=== PATIENT | female | born 1960 | race Caucasian/White ===

== ENCOUNTER 2021-01-28 05:41 | Emergency (ER) | payer MEDICARE ==
[2021-01-28 06:56] LABS: HEMOGLOBIN 14.8 gm/dl (12.3-15.3); RED BLOOD COUNT 4.87 M/UL (4.00-5.10); WHITE BLOOD COUNT 15.2 K/UL (4.5-11.0)
[2021-01-28 07:09] LABS: BUN/CREATININE RATIO 22 (0-10)
[2021-01-28] MEDS ORDERED: AUGMENTIN 875-1 EACH PO (09:22)
== END 2021-01-28 10:09 | disposition home or self-care (01) ==
LOC: ER1 05:41
PROVIDERS: Physician Assistant
DX: K04.7 Periapical abscess without sinus (principal); I10 Essential (primary) hypertension; F17.200 Nicotine dependence, unspecified, uncomplicated
CPT/HCPCS: 41800; 70487; 80053; 85025; 93005; 96374; 96375; 99284; J2405; Q9967

== ENCOUNTER → 2021-11-20 | Outpatient (CLI) | payer MEDICARE ==
[~2021-11-20] MED LIST: AUGMENTIN 875-1 EACH PO
== END ==
LOC: US 11-10 09:15
DX: I10 Essential (primary) hypertension (principal); I70.0 Atherosclerosis of aorta
CPT/HCPCS: 76775; 93979